=== PATIENT | female | born 1960 | race Caucasian/White ===

== ENCOUNTER 2016-12-12 16:12 | Inpatient (IN) | payer OTHER ==
[~2016-12-12] VITALS: Ht 167.6 cm; Wt 95.0 kg
[~2016-12-12 16:12] MED LIST: BUPR300T PO; DILT180C56 PO; DILT90 PO; DULO60 PO; ESTR1TAB PO; FLUO20TA20 PO; HYZA50TA2 PO; LAMO25 PO; LORA-474 PO; LOSA25 PO; LOVA40TA PO; NORC10TA2 PO; PROP10TA6 PO; PROP1TAB66 PO; QUET25 PO; RANI150 PO; SOMA350T PO; TEMA15 PO; VITA200017 PO; ZANT150T2 PO
[2016-12-12 16:15] VITALS: BP 192/103; PULSE 102; RESP 16; TEMP 98.2; O2SAT 96
--- NOTE | 2016-12-12 16:56 | PD ---
HPI Chief Complaint: Headache Time Seen by Provider: 16:55 Travel History International Travel<30 days: No Contact w/Intl Traveler<30days: No Traveled to known affect area: No History of Present Illness HPI This is a 56-year-old female history of hypertension, diet-controlled diabetes, migraine headaches, who presents today with complaints of headache and confusion. The patient states that the headache feels like her migraine however she was noted to be confused. Apparently she was driving down her road and did not know how to get home. The police apparently pulled her over because she was driving erratically. She denies any weakness of her extremity is. She does report numbness and tingling to her fingers. She denies this being the worst headache of her life. She states that she has headaches like this when she has the migraines, she just does not have the associated confusion. PFSH Past Medical History Arthritis: No Asthma: No Autoimmune Disease: No Anxiety: Yes Depression: Yes Cardiovascular Problems: Yes (HTN) Chemotherapy: No Chest Pain: No Congestive Heart Failure: No COPD: No Cerebrovascular Accident: No Diabetes: Yes Endocrine: No GERD: No Genitourinary: No Hiatal Hernia: No Hypertension: Yes Immune Disorder: No Kidney Stones: No Musculoskeletal: Yes Neurologic: Yes Psychiatric: Yes (Hx of anxiety and depression) Reproductive: No Respiratory: No Migraines: No Radiation Therapy: No Renal Failure: No Sickle Cell Disease: No Sleep Apnea: No Thyroid Disease: No Ulcer: No Past Surgical History Abdominal Surgery: No AICD: No Arteriovenous Shunt: No Cardiac Surgery: No Cholecystectomy: Yes Ear Surgery: No Endocrine Surgery: No Eye Surgery: No Genitourinary Surgery: No Gynecologic Surgery: No Hysterectomy: Yes Insulin Pump: No Joint Replacement: No Oral Surgery: No Pacemaker: No Thoracic Surgery: No Social History Alcohol Use: No Tobacco Use: No Substance Use: No Allergies-Medications (Allergen,Severity, Reaction): Coded Allergies: Darvocet-N 100 (Verified Allergy, Unknown, 12/12/16) Per paperwork faxed from [facility] on 07/02/16. Propoxyphene (Verified Allergy, Unknown, 12/12/16) Per paperwork faxed from [facility] on 07/02/16. Toradol (Verified Allergy, Unknown, 12/12/16) Per paperwork faxed from [facility] on 07/02/16. Reported Meds & Prescriptions Reported Meds & Active Scripts Active Reported Flexeril (Cyclobenzaprine HCl) 10 Mg Tab 10 Mg PO BID PRN Propranolol (Propranolol HCl) 80 Mg Tab 80 Mg PO Q12HR Lovastatin 40 Mg Tab 40 Mg PO HS Lorazepam 0.5 Mg Tab 0.5 Mg PO BID PRN Lamictal (Lamotrigine) 25 Mg Tab 25 Mg PO BID Estradiol 1 Mg Tab 1 Mg PO DAILY Cymbalta DR (Duloxetine HCl) 60 Mg Capdr 60 Mg PO DAILY Cardizem CD 24 HR (Diltiazem CD 24 HR) 240 Mg Caper 240 Mg PO BID Zantac (Ranitidine HCl) 150 Mg Tab 150 Mg PO BID Review of Systems Except as stated in HPI: all other systems reviewed are Neg General / Constitutional: No: Fever, Chills HENT: Positive: Headaches, No: Lightheadedness, Neck Pain Cardiovascular: No: Chest Pain or Discomfort, Palpitations Respiratory: No: Cough, Shortness of Breath Gastrointestinal: No: Nausea, Vomiting, Abdominal Pain Musculoskeletal: No: Weakness, Pain Skin: No Rash, No Itching Neurologic: Positive: Headache, Change in Mentation, Other (tingling of her bilateral fingers), No: Weakness, Dizziness, Slurred Speech Psychiatric: No: Anxiety, Depression Physical Exam Narrative GENERAL: Well-developed well-nourished female in no acute rest her distress. SKIN: Warm and dry. HEAD: Atraumatic. Normocephalic. EYES: Extraocular muscles were intact. No scleral icterus. No injection or drainage. ENT: No nasal bleeding or discharge. Mucous membranes pink and moist. NECK: Trachea midline. Supple. CARDIOVASCULAR: Regular rate and rhythm. No murmur appreciated. RESPIRATORY: No accessory muscle use. Clear to auscultation. Breath sounds equal bilaterally. GASTROINTESTINAL: Abdomen soft, non-tender, nondistended. MUSCULOSKELETAL: No obvious deformities. No clubbing. No cyanosis. No edema. NEUROLOGICAL: Awake and alert. No obvious cranial nerve deficits. Motor grossly within normal limits. Normal speech. PSYCHIATRIC: Appropriate mood and affect; insight and judgment normal. Data Data Last Documented VS Vital Signs Date Time Temp Pulse Resp B/P Pulse Ox O2 Delivery O2 Flow Rate FiO2 12/12/16 18:35 95 18 206/95 97 Room Air 12/12/16 16:15 98.2 Orders Electrocardiogram (12/12/16 16:55) Prothrombin Time / Inr (Pt) (12/12/16 16:55) Act Partial Throm Time (Ptt) (12/12/16 16:55) Complete Blood Count With Diff (12/12/16 16:55) Urinalysis - C+S If Indicated (12/12/16 16:55) Ct Brain W/O Iv Contrast(Rout) (12/12/16 16:55) Chest, Single Ap (12/12/16 16:55) Ecg Monitoring (12/12/16 16:55) Iv Access Insert/Monitor (12/12/16 16:55) Oximetry (12/12/16 16:55) Sodium Chloride 0.9% Flush (Ns Flush) (12/12/16 17:00) Drug Screen, Random Urine (12/12/16 18:21) Comprehensive Metabolic Panel (12/12/16 18:27) Labetalol Inj (Trandate Inj) (12/12/16 18:28) Labs Laboratory Tests Test 12/12/16 12/12/16 17:00 18:25 White Blood Count 11.5 TH/MM3 Red Blood Count 4.18 MIL/MM3 Hemoglobin 13.1 GM/DL Hematocrit 37.1 % Mean Corpuscular Volume 88.8 FL Mean Corpuscular Hemoglobin 31.3 PG Mean Corpuscular Hemoglobin 35.2 % Concent Red Cell Distribution Width 12.6 % Platelet Count 320 TH/MM3 Mean Platelet Volume 7.7 FL Neutrophils (%) (Auto) 69.9 % Lymphocytes (%) (Auto) 24.0 % Monocytes (%) (Auto) 5.8 % Eosinophils (%) (Auto) 0.1 % Basophils (%) (Auto) 0.2 % Neutrophils # (Auto) 8.0 TH/MM3 Lymphocytes # (Auto) 2.8 TH/MM3 Monocytes # (Auto) 0.7 TH/MM3 Eosinophils # (Auto) 0.0 TH/MM3 Basophils # (Auto) 0.0 TH/MM3 CBC Comment DIFF FINAL Differential Comment Prothrombin Time 10.6 SEC Prothromb Time International 1.0 RATIO Ratio Activated Partial 26.7 SEC Thromboplast Time Sodium Level 132 MEQ/L Potassium Level 3.2 MEQ/L Chloride Level 94 MEQ/L Carbon Dioxide Level 24.3 MEQ/L Anion Gap 14 MEQ/L Blood Urea Nitrogen 13 MG/DL Creatinine 0.70 MG/DL Estimat Glomerular Filtration 87 ML/MIN Rate Random Glucose 155 MG/DL Calcium Level 9.1 MG/DL Aspartate Amino Transf 38 U/L (AST/SGOT) Albumin 4.0 GM/DL Urine Color YELLOW Urine Turbidity CLEAR Urine pH 6.0 Urine Specific [place] 1.031 Urine Protein 30 mg/dL Urine Glucose (UA) NEG mg/dL Urine Ketones 80 mg/dL Urine Occult Blood NEG Urine Nitrite NEG Urine Bilirubin NEG Urine Urobilinogen 2.0 MG/DL Urine Leukocyte Esterase SMALL Urine WBC 6 /hpf Urine Squamous Epithelial 4 /hpf Cells Urine Hyaline Casts 6 /lpf Urine Mucus FEW /lpf Microscopic Urinalysis Comment CATH-CULT NOT IND MDM Medical Decision Making Medical Screen Exam Complete: Yes Emergency Medical Condition: Yes Differential Diagnosis Atypical migraine versus TIA versus CVA versus metabolic derangement Narrative Course 36-year-old female who presents with altered sensorium and headache. The patient has a history of migraine headaches. The patient was stopped by the police because she was confused as where she lived. The patient also noted to have a blood pressure 200 systolic over 90 diastolic. The patient has been given 10 mg of labetalol. Also be given nausea medicine. CT brain are within normal limits. I anticipate this patient will at the very least need to be admitted for TIA workup. At this point the working diagnosis is uncontrolled hypertension versus migraine headache versus metabolic derangement. The patient was signed out to Dr. David Steiner, physician replacing this physician , disposition will be per him. He will follow up on the blood pressure and will admit at the very least under observation. Diagnosis Primary Impression: Cephalgia Additional Impressions: Uncontrolled hypertension Altered sensorium Keyur Haddad MD Dec 12, 2016 16:56
[2016-12-12 17:00] VITALS: BP 207/107; PULSE 95; RESP 18; O2SAT 95
[2016-12-12] MEDS: SODIUM CHLORIDE 0.9% FLUSH 5 ML FLUSH IVF PRN ×2 (17:00→20:06)
[2016-12-12 17:16] LABS: BASOPHIL % 0.2 % (0.0-2.0); EOSINOPHIL % 0.1 % (0.0-4.0); HEMATOCRIT 37.1 % (35.0-46.0); HEMO FLAGS DIFF FINAL; LYMPHOCYTE # 2.8 TH/MM3 (1.0-4.8); MEAN CELL VOLUME 88.8 FL (80.0-100.0); MEAN CORPUSCULAR HEMOGLOBIN 31.3 PG (27.0-34.0); MEAN CORPUSCULAR HGB CONC 35.2 % (32.0-36.0); MONO % 5.8 % (0.0-8.0); NEUT % 69.9 % (16.0-70.0); PLATELET COUNT 320 TH/MM3 (150-450); RED BLOOD COUNT 4.18 MIL/MM3 (4.00-5.30); RED CELL DISTRIBUTION WIDTH 12.6 % (11.6-17.2); WHITE BLOOD COUNT 11.5 TH/MM3 (4.0-11.0)
[2016-12-12 17:29] LABS: APTT (PATIENT) 26.7 SEC (24.3-30.1); PROTHROMBIN TIME - PATIENT 10.6 SEC (9.8-11.6)
--- NOTE | 2016-12-12 17:39 | RADRPT ---
EXAM DATE/TIME: 12/12/2016 17:23 [facility] COMPARISON: CT BRAIN W/O CONTRAST, July 02, 2016, 11:44. INDICATIONS : Headaches with dizziness and blurred vision. RADIATION DOSE: 31.54 CTDIvol (mGy) MEDICAL HISTORY : Cardiovascular disease. Hypertension. Diabetes mellitus type 2. SURGICAL HISTORY : Cholecystectomy. Hysterectomy. ENCOUNTER: Initial ACUITY: 1 day PAIN SCALE: 5/10 LOCATION: cranial TECHNIQUE: Multiple contiguous axial images were obtained of the head. Using automated exposure control and adj ustment of the mA and/or kV according to patient size, radiation dose was kept as low as reasonably a chievable to obtain optimal diagnostic quality images. FINDINGS: CEREBRUM: The ventricles are normal for age. No evidence of midline shift, mass lesion, hemorrhage or acute in farction. No extra-axial fluid collections are seen. POSTERIOR FOSSA: The cerebellum and brainstem are intact. The 4th ventricle is midline. The cerebellopontine angle i s unremarkable. EXTRACRANIAL: The visualized portion of the orbits is intact. SKULL: The calvaria is intact. No evidence of skull fracture. CONCLUSION: Normal examination. Gage Carmen MD on December 12, 2016 at 17:36 Board Certified Radiologist. This report was verified electronically.
--- NOTE | 2016-12-12 17:42 | RADRPT ---
EXAM DATE/TIME: 12/12/2016 17:12 [facility] COMPARISON: No previous studies available for comparison. INDICATIONS : Chest pain. CVA MEDICAL HISTORY : None. SURGICAL HISTORY : None. ENCOUNTER: Initial ACUITY: 1 day PAIN SCORE: 0/10 LOCATION: Bilateral chest FINDINGS: A single view of the chest demonstrates the lungs to be symmetrically aerated without evidence of mas s, infiltrate or effusion. The cardiomediastinal contours are unremarkable. Osseous structures are intact. CONCLUSION: No acute disease. Gage Carmen MD on December 12, 2016 at 17:40 Board Certified Radiologist. This report was verified electronically.
[2016-12-12] MEDS ORDERED: ZANT150T2 PO (18:07)
[2016-12-12] MEDS ORDERED: CYMB60CA PO (18:09)
[2016-12-12] MEDS ORDERED: CARD240C6 PO (18:09)
[2016-12-12] MEDS ORDERED: LAMO25 PO (18:09)
[2016-12-12] MEDS ORDERED: ESTR1TAB PO (18:09)
[2016-12-12] MEDS ORDERED: PROP80TA PO (18:14)
[2016-12-12] MEDS ORDERED: LORA-373 PO (18:14)
[2016-12-12] MEDS ORDERED: LOVA40TA PO (18:14)
[2016-12-12] MEDS ORDERED: CYCL1TAB29 PO (18:15)
[2016-12-12] MEDS ORDERED: LABETALOL HCL 100 MG/20 ML VIAL IV PUSH STA (18:28)
[2016-12-12 18:35] VITALS: BP 206/95; PULSE 95; RESP 18; O2SAT 97
[2016-12-12 18:51] LABS: BLOOD, URINE NEG (NEG); GLUCOSE,URINE NEG (NEG); HYALINE CAST, URINE 6 /lpf (RARE); KETONE, URINE 80 mg/dL (NEG); MUCUS URINE FEW /lpf (OCC); NITRITE,URINE NEG (NEG); SQUAMOUS EPITHELIAL CELL URINE 4 /hpf (0-5); URINE COLOR YELLOW (YELLW/STRAW)
[2016-12-12 18:56] LABS: COMMENT (UR) CATH-CULT NOT IND; CULTURE IF INDICATED CATH CULTURE NOT IND
[2016-12-12 19:01] LABS: ANION GAP 14 MEQ/L (5-15); AST (GOT) 38 U/L (15-37); BICARBONATE 24.3 MEQ/L (21.0-32.0); BLOOD UREA NITROGEN 13 MG/DL (7-18); CHLORIDE 94 MEQ/L (98-107); GLOMERULAR FILTRATION RATE 87 ML/MIN (>89); POTASSIUM 3.2 MEQ/L (3.5-5.1); SODIUM (NA) 132 MEQ/L (136-145)
[2016-12-12 19:03] LABS: AMPHETAMINE, URINE NEG (NEG); BARBITURATES, URINE NEG (NEG); COCAINE, URINE NEG (NEG)
--- NOTE | 2016-12-12 19:04 | PD ---
Physical Exam Date Seen by Provider: Dec 12, 2016 Time Seen by Provider: 19:01 Narrative The patient is a 56-year-old female who was initially evaluated by the previous physician, Dr. Haddad. Please refer to the initial history, physical, diagnostic evaluation, treatment modality plan. According to the previous physician the patient had an episode of confusion earlier today, had difficulty getting home. The patient apparently was escorted home by police. CT the brain was negative, however, the previous physician thought there might have been a TIA that causes patient's symptoms. He recommends 23 hour observation for further evaluation after workup was completed in the emergency department. Data Data Last Documented VS Vital Signs Date Time Temp Pulse Resp B/P Pulse Ox O2 Delivery O2 Flow Rate FiO2 12/12/16 19:05 95 18 160/73 100 Room Air 12/12/16 16:15 98.2 Orders Electrocardiogram (12/12/16 16:55) Prothrombin Time / Inr (Pt) (12/12/16 16:55) Act Partial Throm Time (Ptt) (12/12/16 16:55) Complete Blood Count With Diff (12/12/16 16:55) Urinalysis - C+S If Indicated (12/12/16 16:55) Ct Brain W/O Iv Contrast(Rout) (12/12/16 16:55) Chest, Single Ap (12/12/16 16:55) Ecg Monitoring (12/12/16 16:55) Iv Access Insert/Monitor (12/12/16 16:55) Oximetry (12/12/16 16:55) Sodium Chloride 0.9% Flush (Ns Flush) (12/12/16 17:00) Drug Screen, Random Urine (12/12/16 18:21) Comprehensive Metabolic Panel (12/12/16 18:27) Labetalol Inj (Trandate Inj) (12/12/16 18:28) Morphine Inj (Morphine Inj) (12/12/16 19:15) Ondansetron Inj (Zofran Inj) (12/12/16 19:15) Admit Order (Ed Use Only) (12/12/16 19:19) Labs Laboratory Tests Test 12/12/16 12/12/16 17:00 18:25 White Blood Count 11.5 TH/MM3 Red Blood Count 4.18 MIL/MM3 Hemoglobin 13.1 GM/DL Hematocrit 37.1 % Mean Corpuscular Volume 88.8 FL Mean Corpuscular Hemoglobin 31.3 PG Mean Corpuscular Hemoglobin 35.2 % Concent Red Cell Distribution Width 12.6 % Platelet Count 320 TH/MM3 Mean Platelet Volume 7.7 FL Neutrophils (%) (Auto) 69.9 % Lymphocytes (%) (Auto) 24.0 % Monocytes (%) (Auto) 5.8 % Eosinophils (%) (Auto) 0.1 % Basophils (%) (Auto) 0.2 % Neutrophils # (Auto) 8.0 TH/MM3 Lymphocytes # (Auto) 2.8 TH/MM3 Monocytes # (Auto) 0.7 TH/MM3 Eosinophils # (Auto) 0.0 TH/MM3 Basophils # (Auto) 0.0 TH/MM3 CBC Comment DIFF FINAL Differential Comment Prothrombin Time 10.6 SEC Prothromb Time International 1.0 RATIO Ratio Activated Partial 26.7 SEC Thromboplast Time Sodium Level 132 MEQ/L Potassium Level 3.2 MEQ/L Chloride Level 94 MEQ/L Carbon Dioxide Level 24.3 MEQ/L Anion Gap 14 MEQ/L Blood Urea Nitrogen 13 MG/DL Creatinine 0.70 MG/DL Estimat Glomerular Filtration 87 ML/MIN Rate Random Glucose 155 MG/DL Calcium Level 9.1 MG/DL Total Bilirubin 0.9 MG/DL Aspartate Amino Transf 38 U/L (AST/SGOT) Alanine Aminotransferase 28 U/L (ALT/SGPT) Alkaline Phosphatase 75 U/L Total Protein 7.9 GM/DL Albumin 4.0 GM/DL Urine Color YELLOW Urine Turbidity CLEAR Urine pH 6.0 Urine Specific [place] 1.031 Urine Protein 30 mg/dL Urine Glucose (UA) NEG mg/dL Urine Ketones 80 mg/dL Urine Occult Blood NEG Urine Nitrite NEG Urine Bilirubin NEG Urine Urobilinogen 2.0 MG/DL Urine Leukocyte Esterase SMALL Urine WBC 6 /hpf Urine Squamous Epithelial 4 /hpf Cells Urine Hyaline Casts 6 /lpf Urine Mucus FEW /lpf Microscopic Urinalysis Comment CATH-CULT NOT IND MDM Medical Record Reviewed: Yes Supervised Visit with LESLEY: No Interpretation(s) Last Impressions Head CT 12/12/161654 Signed Impressions: Service Date/Time: Monday, December 12, 2016 17:23 - CONCLUSION: Normal examination. Gage Carmen MD Chest X-Ray 12/12/161654 Signed Impressions: Service Date/Time: Monday, December 12, 2016 17:12 - CONCLUSION: No acute disease. Gage Carmen MD Differential Diagnosis Differential diagnosis includes transient global amnesia, TIA, CVA, delirium, drug intoxication, metabolic encephalopathy. Narrative Course The patient was initially evaluated by the previous physician, Dr. Haddad. Please refer to the initial history, physical, diagnostic evaluation, and treatment modality plan. The patient was signed out at 7 PM laboratory evaluation pending and subsequent 23 hour observation for possible TIA. CT of the brain was negative. Metabolic workup was unremarkable. The patient was reevaluated at 7:10 PM, she states that she has a slight headache, numbness and tingling to the hands and tongue, and confusion. The patient states that her symptoms started while driving home and lasted approximately 30 minutes. She does have a history of migraines with tingling, however, denies any history of confusion with her migraines. The patient's differential diagnosis includes TIA, CVA, metabolic encephalopathy, hypertensive emergency, hypertensive urgency , and transient global amnesia. Dr. Haddad, the previous physician, recommended 23 hour observation. The patient is comfortable with this plan of care and disposition. She may benefit from MRI of the brain and neurology evaluation. The patient sees Dr. Boyle at [facility], therefore, [facility] was paged for observation at 7:13 PM. The patient's initial blood pressure was significantly elevated with a systolic in the 200s and a diastolic in the 100s, after labetalol was administered by Dr. Haddad, patient's blood pressure came down 160/73. The patient did complain of a headache, therefore, was administered morphine and Zofran. Physician Communication Physician Communication [facility] was paged for 23 hour observation. I discussed the patient with Dr. Crocker who agrees with 23 hour observation. Diagnosis Primary Impression: Altered sensorium Additional Impression: Uncontrolled hypertension Admitting Information Admitting Physician Requests: Observation Condition: Stable David Steiner MD Dec 12, 2016 19:03
[2016-12-12 19:05] VITALS: BP 160/73; PULSE 95; RESP 18; O2SAT 100
[2016-12-12 19:05] LABS: ALKALINE PHOSPHATASE 75 U/L (45-117); ALT (GPT) 28 U/L (10-53); TOTAL BILIRUBIN ADULT 0.9 MG/DL (0.2-1.0)
[2016-12-12] MEDS ORDERED: ONDANSETRON HCL 4 MG/2 ML VIAL IV PUSH ONE (19:15)
[2016-12-12] MEDS ORDERED: MORPHINE SULFATE 4 MG/ML INJ IV PUSH ONE (19:15)
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
[2016-12-12 20:54] VITALS: BP 198/93; PULSE 96; RESP 16; O2SAT 98
[2016-12-12] MEDS ORDERED: cloNIDine HCL 0.1 MG TAB PO PRN (21:00)
[2016-12-12] MEDS ORDERED: RANITIDINE HCL 150 MG TAB PO SCH (21:00)
[2016-12-12] MEDS ORDERED: POTASSIUM CHLORIDE 10 MEQ CONTROLLED RELEASE TAB PO ONE (21:00)
[2016-12-12] MEDS ORDERED: LABETALOL HCL 100 MG/20 ML VIAL IV PUSH PRN (21:00)
--- NOTE | 2016-12-12 21:03 | EKG ---
Date Performed: 12/12/2016 Time Performed: 17:17:04 PTAGE: 56 years EKG: Sinus rhythm NORMAL ECG NO PREVIOUS TRACING DOCTOR: Duarte Cullen Interpretating Date/Time 12/12/2016 21:02:11
[2016-12-12 21:19] LABS: MAGNESIUM 1.8 MG/DL (1.5-2.5)
[2016-12-12] MEDS: PRAVASTATIN SOD 40 MG TAB PO SCH (21:51)
[2016-12-12] MEDS: LOSARTAN 50 MG TAB PO SCH (23:12)
[2016-12-12] MEDS: FAMOTIDINE 20 MG TAB PO SCH (23:12)
[2016-12-12] MEDS: lamoTRIgine 25 MG TAB PO SCH (23:12)
[2016-12-12] MEDS: DILTIAZEM-CD 240 MG CAP ER PO SCH (23:12)
[2016-12-12 23:42] VITALS: BP 191/79; PULSE 109; RESP 16; O2SAT 97
[2016-12-13 00:10] VITALS: BP 170/80; PULSE 98; RESP 16; O2SAT 97
[2016-12-13 03:38] VITALS: BP 164/78; PULSE 68; RESP 18; TEMP 98.8; O2SAT 98
[2016-12-13] MEDS: MORPHINE SULFATE 4 MG/ML INJ IV PUSH PRN ×2 (04:04→11:31)
[2016-12-13 07:19] LABS: BICARBONATE 22.6 MEQ/L (21.0-32.0); POTASSIUM 3.4 MEQ/L (3.5-5.1)
[2016-12-13 07:54] VITALS: BP 179/89; PULSE 96; RESP 18; TEMP 98; O2SAT 95
[2016-12-13] MEDS: LOSARTAN 50 MG TAB PO SCH (10:40)
[2016-12-13] MEDS: FAMOTIDINE 20 MG TAB PO SCH ×2 (10:48→20:19)
[2016-12-13] MEDS: DULoxetine HCl DR 60 MG CAP PO SCH (10:48)
[2016-12-13] MEDS: lamoTRIgine 25 MG TAB PO SCH ×2 (11:30→20:19)
[2016-12-13] MEDS: VITAMIN B COMPLEX/VIT C TAB PO SCH (11:30)
[2016-12-13] MEDS: DILTIAZEM-CD 240 MG CAP ER PO SCH (11:30)
[2016-12-13 11:58] VITALS: BP 189/97; PULSE 90; RESP 16; TEMP 97.7; O2SAT 97
--- NOTE | 2016-12-13 12:49 | HHI.PR ---
Subjective Remarks had some h/a and required morphine today Objective Vitals on edge bed oriented heart reg lung cta abd s/nt ext no edema no jvd or bruit Vital Signs Date Time Temp Pulse Resp B/P Pulse Ox O2 Delivery O2 Flow Rate FiO2 12/13/16 11:58 97.7 90 16 189/97 97 12/13/16 07:54 98.0 96 18 179/89 95 12/13/16 04:17 14 12/13/16 03:38 98.8 68 18 164/78 98 12/13/16 00:10 98 16 170/80 97 Room Air 12/12/16 23:42 109 16 191/79 97 Room Air 12/12/16 20:54 96 16 198/93 98 Room Air 12/12/16 19:05 95 18 160/73 100 Room Air 12/12/16 18:35 95 18 206/95 97 Room Air 12/12/16 17:00 95 18 207/107 95 12/12/16 17:00 94 Room Air 12/12/16 16:15 98.2 102 16 192/103 96 Result Diagram: 12/12/16 1700 12/13/16 0538 Imaging Last [address] 12/12/161654 Signed Impressions: Service Date/Time: Monday, December 12, 2016 17:23 - CONCLUSION: Normal examination. Gage Carmen MD Chest X-Ray 12/12/161654 Signed Impressions: Service Date/Time: Monday, December 12, 2016 17:12 - CONCLUSION: No acute disease. Gage Carmen MD A/P Problem List: (1) Uncontrolled hypertension Status: Acute Plan: Pt presented with migraine/aura...some confusion and severe elevation of htn Pt says her bp is typically not well controlled and usually at least in 160-170 systolic range when checked. currently her mental status is improved. headache intermittent. auras better. will adjust her bp meds. will cont her home propranolol as this also could help with migraines. will d/c cardizem and replace with procardia. titrate as needed. cont her arb for now. d/c iv pain meds. prn po for now. monitor overnight and d/c tomorrow if stable. (2) Migraine headache with aura Status: Acute Plan: see above (3) Hypokalemia Status: Acute Plan: Replace and recheck. (4) Major depression in partial remission Status: Chronic Plan: Continue medications. (5) Anxiety and depression Status: Chronic Plan: Continue Medications. She uses Ativan when necessary but sparingly. (6) GERD (gastroesophageal reflux disease) Status: Chronic Plan: Continue medications. Lupillo Busch MD Dec 13, 2016 12:49
[2016-12-13] MEDS ORDERED: cloNIDine HCL 0.1 MG TAB PO PRN (13:00)
[2016-12-13] MEDS ORDERED: POTASSIUM CHLORIDE 20 MEQ CONTROLLED RELEASE TAB PO ONE (13:00)
[2016-12-13 15:52] VITALS: BP 185/98; PULSE 95; RESP 16; TEMP 98.1; O2SAT 98
[2016-12-13] MEDS ORDERED: NIFEdipine 30 MG SUSTAINED RELEASE TAB PO ONE (18:15)
[2016-12-13 20:02] VITALS: BP 188/88; PULSE 101; RESP 20; TEMP 98.3; O2SAT 97
[2016-12-13] MEDS: SODIUM CHLORIDE 0.9% FLUSH 5 ML FLUSH IVF PRN (20:19)
[2016-12-13] MEDS: PRAVASTATIN SOD 40 MG TAB PO SCH (20:19)
[2016-12-13] MEDS: PROPRANOLOL HCL 80 MG TAB PO SCH (20:19)
[2016-12-13] MEDS ORDERED: NIFEdipine 30 MG SUSTAINED RELEASE TAB PO SCH (21:00)
[2016-12-14] VITALS (7 sets, daily range): BP systolic 145–174; BP diastolic 72–93; PULSE 73–89; RESP 18–20; TEMP 97.6–98.8; O2SAT 96–100
[2016-12-14] MEDS: cloNIDine HCL 0.2 MG TAB PO PRN (04:41)
[2016-12-14] MEDS ORDERED: NIFEdipine 30 MG SUSTAINED RELEASE TAB PO SCH (09:00)
[2016-12-14] MEDS: DULoxetine HCl DR 60 MG CAP PO SCH (09:31)
[2016-12-14] MEDS: ACETAMINOPHEN/HYDROcodone 325 MG/10 MG TAB PO PRN ×2 (09:32→21:21)
[2016-12-14] MEDS: LOSARTAN 50 MG TAB PO SCH (09:33)
[2016-12-14] MEDS: PROPRANOLOL HCL 80 MG TAB PO SCH ×2 (09:33→20:50)
[2016-12-14] MEDS: NIFEdipine 60 MG SUSTAINED RELEASE TAB PO SCH ×2 (09:33→20:50)
[2016-12-14] MEDS: FAMOTIDINE 20 MG TAB PO SCH ×2 (09:33→20:50)
[2016-12-14] MEDS: VITAMIN B COMPLEX/VIT C TAB PO SCH (09:33)
[2016-12-14] MEDS: lamoTRIgine 25 MG TAB PO SCH ×2 (09:34→20:50)
[2016-12-14] MEDS ORDERED: ACETAMINOPHEN/HYDROcodone 325 MG/5 MG TAB PO ONE (13:30)
[2016-12-14] MEDS ORDERED: methylPREDNISolone SO SUCC INJ 500 MG in DEXTROSE 5% IN WATER 100ML INJ 100 ML IV ONE ×2 (15:00)
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
[2016-12-14] MEDS: PRAVASTATIN SOD 40 MG TAB PO SCH (20:50)
[2016-12-14] MEDS: SODIUM CHLORIDE 0.9% FLUSH 5 ML FLUSH IVF PRN (20:50)
[2016-12-15] VITALS: BP 153/82; PULSE 78; RESP 18; TEMP 98.3; O2SAT 98
[2016-12-15] MEDS: ACETAMINOPHEN/HYDROcodone 325 MG/10 MG TAB PO PRN ×4 (03:59→18:58)
[2016-12-15 04:16] VITALS: BP 135/77; PULSE 95; RESP 18; TEMP 98; O2SAT 99
[2016-12-15 08:02] VITALS: BP 176/98; PULSE 90; RESP 18; TEMP 97.8; O2SAT 98
[2016-12-15] MEDS: DULoxetine HCl DR 60 MG CAP PO SCH (08:56)
[2016-12-15] MEDS: NIFEdipine 60 MG SUSTAINED RELEASE TAB PO SCH ×2 (08:56→20:42)
[2016-12-15] MEDS: VITAMIN B COMPLEX/VIT C TAB PO SCH (08:56)
[2016-12-15] MEDS: FAMOTIDINE 20 MG TAB PO SCH ×2 (08:56→20:43)
[2016-12-15] MEDS: LOSARTAN 50 MG TAB PO SCH ×2 (08:56→20:42)
[2016-12-15] MEDS: PROPRANOLOL HCL 80 MG TAB PO SCH ×2 (08:56→20:42)
[2016-12-15] MEDS: lamoTRIgine 25 MG TAB PO SCH ×2 (08:57→20:42)
[2016-12-15] MEDS: LORazepam 0.5 MG TAB PO PRN ×2 (08:59→18:58)
[2016-12-15 11:40] VITALS: BP 165/80; PULSE 82; RESP 18; O2SAT 95
[2016-12-15] MEDS: CYCLOBENZAPRINE HCL 10 MG TAB PO PRN (13:40)
--- NOTE | 2016-12-15 13:59 | MG ---
cc: SHERRY KWON M.D. Lab No: [id number] Date: 12/15/2016 Age: Sex: F TECHNIQUE 17-channel EEG. DESCRIPTION The background rhythm reveals a symmetrical alpha rhythm, frequencies 8-9 Hz, amplitude about 10-15 microvolts. Occasional eye movement and muscle artifact are identified. There are no lateralizing features. There are no epileptiform features present. Photic results in a normal driving response. Hyperventilation was not done. INTERPRETATION Normal EEG. Sherry Kwon MD KAYLEEN/MARYCHUY /1:52 PM /1:57 PM
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
[2016-12-15] MEDS ORDERED: POTASSIUM CHLORIDE 20 MEQ CONTROLLED RELEASE TAB PO ONE (15:00)
[2016-12-15 16:10] VITALS: BP 180/86; PULSE 80; RESP 18; O2SAT 95
[2016-12-15] MEDS: cloNIDine HCL 0.2 MG TAB PO PRN (16:54)
[2016-12-15 19:38] VITALS: BP 130/69; PULSE 92; RESP 20; TEMP 97.8; O2SAT 96
[2016-12-15] MEDS: PRAVASTATIN SOD 40 MG TAB PO SCH (20:42)
[2016-12-16 00:04] VITALS: BP 180/89; PULSE 82; RESP 22; TEMP 97.9; O2SAT 95
[2016-12-16] MEDS: cloNIDine HCL 0.2 MG TAB PO PRN (01:03)
[2016-12-16] MEDS: CYCLOBENZAPRINE HCL 10 MG TAB PO PRN ×2 (01:03→15:54)
[2016-12-16] MEDS: ACETAMINOPHEN/HYDROcodone 325 MG/10 MG TAB PO PRN ×4 (01:03→23:48)
[2016-12-16 03:59] VITALS: BP 115/73; PULSE 77; RESP 22; TEMP 98; O2SAT 93
[2016-12-16 07:19] LABS: BASOPHIL % 0.1 % (0.0-2.0); EOSINOPHIL # 0.1 TH/MM3 (0-0.4); EOSINOPHIL % 0.9 % (0.0-4.0); HEMATOCRIT 34.3 % (35.0-46.0); HEMO FLAGS DIFF FINAL; LYMPH % 40.7 % (9.0-44.0); LYMPHOCYTE # 4.8 TH/MM3 (1.0-4.8); MEAN CELL VOLUME 91.8 FL (80.0-100.0); MEAN CORPUSCULAR HEMOGLOBIN 30.8 PG (27.0-34.0); MEAN CORPUSCULAR HGB CONC 33.6 % (32.0-36.0); MONO % 7.4 % (0.0-8.0); NEUT % 50.9 % (16.0-70.0); PLATELET COUNT 242 TH/MM3 (150-450); RED BLOOD COUNT 3.74 MIL/MM3 (4.00-5.30); RED CELL DISTRIBUTION WIDTH 12.8 % (11.6-17.2); WHITE BLOOD COUNT 11.8 TH/MM3 (4.0-11.0)
[2016-12-16 07:46] LABS: BICARBONATE 26.8 MEQ/L (21.0-32.0); MAGNESIUM 1.9 MG/DL (1.5-2.5); POTASSIUM 4.1 MEQ/L (3.5-5.1)
[2016-12-16 08:13] VITALS: BP 173/83; PULSE 88; RESP 20; TEMP 98.1; O2SAT 93
[2016-12-16] MEDS: FAMOTIDINE 20 MG TAB PO SCH ×2 (09:23→20:40)
[2016-12-16] MEDS: VITAMIN B COMPLEX/VIT C TAB PO SCH (09:23)
[2016-12-16] MEDS: DULoxetine HCl DR 60 MG CAP PO SCH (09:23)
[2016-12-16] MEDS: lamoTRIgine 25 MG TAB PO SCH ×2 (09:23→20:40)
[2016-12-16] MEDS: NIFEdipine 60 MG SUSTAINED RELEASE TAB PO SCH ×2 (09:23→20:40)
[2016-12-16] MEDS: LOSARTAN 50 MG TAB PO SCH ×2 (09:23→20:40)
[2016-12-16] MEDS: LORazepam 0.5 MG TAB PO PRN ×2 (09:23→23:48)
[2016-12-16] MEDS: PROPRANOLOL HCL 80 MG TAB PO SCH ×2 (09:23→20:40)
[2016-12-16 09:24] LABS: BETA HCG QUANT LESS THAN 1 MIU/ML (0-5)
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
[2016-12-16 10:06] VITALS: BP 140/84
[2016-12-16] MEDS ORDERED: IOHEXOL 350 MG/ML 10 ML VIAL (for RAD DIAG) IV ONE (12:13)
--- NOTE | 2016-12-16 14:34 | RADRPT ---
EXAM DATE/TIME: 12/16/2016 12:03 [facility] COMPARISON: CT BRAIN W/O CONTRAST, December 12, 2016, 17:23. INDICATIONS : Evaluate for renal artery stenosis IV CONTRAST: 88 cc Omnipaque 350 (iohexol) IV ORAL CONTRAST: No oral contrast ingested. RADIATION DOSE: 15.20 CTDIvol (mGy) MEDICAL HISTORY : Hypertension. Diabetes mellitus type 1. SURGICAL HISTORY : Cholecystectomy. Hysterectomy. ENCOUNTER: Initial ACUITY: 1 day PAIN SCALE: 0/10 LOCATION: abdomen TECHNIQUE: Volumetric scanning was performed using a multi-row detector CT scanner. The data was post processed with a variety of visualization algorithms including full volume maximum intensity projection, multi -planar sliding thin slab reformation, curved planar reformation, and surface rendering techniques. Using automated exposure control and adjustment of the mA and/or kV according to patient size, radiat ion dose was kept as low as reasonably achievable to obtain optimal diagnostic quality images. FINDINGS: ABDOMINAL AORTA: The celiac and SMA origins are widely patent. There are single renal arteries bilaterally. The renal arteries are widely patent. The infrarenal aorta is normal in caliber. The CHRISTINA is patent. BIFURCATION: Normal. RIGHT PELVIS: The right common iliac, internal iliac and external iliac vessels are patent without luminal irregula rity. LEFT PELVIS: The left common iliac, internal iliac and external iliac vessels are patent and without luminal irreg ularity. CT source data: The solid organs of the abdomen are grossly intact by arterial phase imaging. There is no retroperito karson lymphadenopathy. Note is made of a thin-walled fluid collection in the upper abdomen measuring 5 .3 x 2.2 cm. This is adjacent to the pancreas and probably represents an old pseudocyst. There are no inflammatory changes around this. No findings to indicate bowel obstruction are seen. There is no fr ee fluid within the pelvis. No iliac or inguinal adenopathy is present. The patient is post hysterect ramona. CONCLUSION: 1. 2.2 x 5.2 cm thin-walled fluid collection in the left upper abdomen. This appears benign. This pro bably represents an old pseudocyst or a mesenteric duplication cyst. Followup CT imaging in 6 months to confirm stability could be performed. 2. Single renal arteries bilaterally. The renal arteries are widely patent. Landon Briones MD on December 16, 2016 at 13:50 Board Certified Radiologist. This report was verified electronically.
[2016-12-16 15:45] VITALS: BP 160/82; PULSE 82; RESP 18; O2SAT 95
[2016-12-16 19:32] VITALS: BP 150/76; PULSE 90; RESP 18; TEMP 98.4; O2SAT 98
[2016-12-16] MEDS: PRAVASTATIN SOD 40 MG TAB PO SCH (20:40)
[2016-12-17 03:24] VITALS: BP 151/82; PULSE 78; RESP 18; TEMP 98; O2SAT 97
[2016-12-17 06:35] LABS: BICARBONATE 27.7 MEQ/L (21.0-32.0); MAGNESIUM 1.9 MG/DL (1.5-2.5)
[2016-12-17] MEDS: lamoTRIgine 25 MG TAB PO SCH (08:10)
[2016-12-17] MEDS: NIFEdipine 60 MG SUSTAINED RELEASE TAB PO SCH (08:10)
[2016-12-17] MEDS: SODIUM CHLORIDE 0.9% FLUSH 5 ML FLUSH IVF PRN (08:11)
[2016-12-17] MEDS: CYCLOBENZAPRINE HCL 10 MG TAB PO PRN (08:11)
[2016-12-17] MEDS: DULoxetine HCl DR 60 MG CAP PO SCH (08:11)
[2016-12-17] MEDS: LOSARTAN 50 MG TAB PO SCH (08:11)
[2016-12-17] MEDS: VITAMIN B COMPLEX/VIT C TAB PO SCH (08:11)
[2016-12-17] MEDS: FAMOTIDINE 20 MG TAB PO SCH (08:11)
[2016-12-17] MEDS: PROPRANOLOL HCL 80 MG TAB PO SCH (08:11)
[2016-12-17 09:17] VITALS: BP 126/86; PULSE 84; RESP 20; TEMP 97.6; O2SAT 96
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
[2016-12-17] MEDS ORDERED: COZA50TA PO (09:45)
--- NOTE | 2016-12-17 09:49 | HHI.DCPOC ---
Discharge Care Plan Diagnosis: (1) Migraine headache with aura (2) Uncontrolled hypertension (3) Anxiety and depression (4) GERD (gastroesophageal reflux disease) (5) Major depression in partial remission (6) Hypokalemia Goals to Promote Your Health * To prevent worsening of your condition and complications * To maintain your health at the optimal level Directions to Meet Your Goals Take your medications as prescribed Follow your dietary instruction Follow activity as directed - I am recommending low Sodium diet 2g - keep home BP log - take all medications as prescribed - F/U with PCP, Dr. Boyle, in 1 week with home BP log Keep your appointments as scheduled Take your immunizations and boosters as scheduled If your symptoms worsen call your PCP, if no PCP go to Urgent Care Center or Emergency Room Smoking is Dangerous to Your Health. Avoid second hand smoke Call the 24-hour hour crisis hotline for domestic abuse at Sumit Morales DO Dec 17, 2016 09:49
[2016-12-17] MEDS ORDERED: NIFE60TA8 PO (10:03)
== END 2016-12-17 11:45 | disposition home or self-care (01) | DRG 103 ==
LOC: NEPE 16:12 → NEDA 19:22 → NEPGCP 12-13 01:25 → OBSVTOIN 12-15 14:39
PROVIDERS: ADMIT Hospitalist; ATTEND Hospitalist
DX: G43.109 Migraine with aura, not intractable, without status migrainosus (principal); E55.9 Vitamin D deficiency, unspecified; I16.1 Hypertensive emergency; I10 Essential (primary) hypertension; E78.5 Hyperlipidemia, unspecified; E87.6 Hypokalemia; F32.4 Major depressive disorder, single episode, in partial remission; F41.9 Anxiety disorder, unspecified; K21.9 Gastro-esophageal reflux disease without esophagitis; Z79.890 Hormone replacement therapy; E66.9 Obesity, unspecified; Z68.33 Body mass index [BMI] 33.0-33.9, adult; M48.06 Spinal stenosis, lumbar region; H40.059 Ocular hypertension, unspecified eye; E11.9 Type 2 diabetes mellitus without complications; G89.29 Other chronic pain; M54.5 Low back pain; M50.30 Other cervical disc degeneration, unspecified cervical region; M51.36 Other intervertebral disc degeneration, lumbar region
CPT/HCPCS: 70450; 71010; 74174; 80048; 80053; 80307; 81001; 83735; 84702; 85025; 85610; 85730; 93005; 95819; 96374; G0378; G8987-GP; G8988-GP; J2270; J2405; J2930; Q9967

== ENCOUNTER → 2017-07-16 | Day surgery (SDC) | payer OTHER ==
[~2017-07-16] VITALS: Ht 165.1 cm; Wt 93.0 kg
[~2017-07-16] MED LIST changes: +ACETAMINOPHEN 325 MG TAB PO PRN; -BUPR300T PO; +CHLORHEXIDINE GLUCONATE 2 % 1 PACK (2 CLOTHS) TOPICAL PRN; +CYCL1TAB29 PO; +CYMB60CA PO; -DILT180C56 PO; -DILT90 PO; -DULO60 PO; -FLUO20TA20 PO; +FLURBIPROFEN 0.03% OPHT SOLN 2.5 ML BTL RIGHT EYE SCH; -HYZA50TA2 PO; +INSULIN HUMAN REGULAR 1,000 UNITS/10 ML VIAL SQ PRN; +LACTATED RINGER'S 1000 ML IV PRN; +LIDOCAINE HCL 1% PF 30 ML VIAL ONE; +LIDOCAINE HCL 2% JELLY 5 ML SYRINGE TOPICAL ONE; +LORA-373 PO; -LORA-474 PO; -LOSA25 PO; +LOSA50TA2 PO; +METOPROLOL TARTRATE 25 MG TAB PO PRN; +MIDAZOLAM HCL 2 MG/2 ML VIAL ONE; +NIFE60TA8 PO; -NORC10TA2 PO; +POVIDONE IODINE 5% (ANTISEPSIS KIT) 4 APPLICATIONS EACH NARE PRN; -PROP10TA6 PO; -PROP1TAB66 PO; +PROP80TA PO; +PROPARACAINE HCL 0.5% OPHT SOLN 15 ML BTL RIGHT EYE ONE; -QUET25 PO; -RANI150 PO; +SODIUM CHLORID 0.9% 500 ML IV PRN; -SOMA350T PO; -TEMA15 PO; +TOBRAMYCIN/DEXAMETHASONE OPTH OINT 3.5 GM TUBE ONE; -VITA200017 PO
[2017-07-16] MEDS: POLYMYXIN/TRIMETHOPRIM OPHT SOLN 10 ML BTL RIGHT EYE SCH ×4 (07:15→07:30)
[2017-07-16] MEDS: CYCLOPENTOLATE HCL 1% OPHT SOLN 2 ML BTL RIGHT EYE SCH ×4 (07:15→07:30)
[2017-07-16] MEDS: PHENYLEPHRINE HCL 10% OPTH SOLN 5 ML BTL RIGHT EYE SCH ×4 (07:15→07:30)
[2017-07-16] MEDS: TROPICAMIDE 1% OPHT SOLN 15 ML BTL RIGHT EYE SCH ×4 (07:15→07:30)
[2017-07-16 09:03] VITALS: TEMP 98.6
[2017-07-16 09:23] VITALS: BP 113/81; PULSE 83; RESP 14; O2SAT 96
--- NOTE | 2017-07-16 12:39 | MP ---
cc: SATISH FREEDMAN M.D. [facility] #: [id number] DATE: July 16, 2017 PREOPERATIVE DIAGNOSIS: Visually significant cataract right eye. POSTOPERATIVE DIAGNOSIS: Visually significant cataract right eye. OPERATION: Phacoemulsification with posterior chamber lens implantation, right eye. SURGEON: Satish Freedman MD ANESTHESIA: Topical with MAC. COMPLICATIONS: None. PROCEDURE: After informed consent was obtained, the patient was brought into the operative suite and placed on appropriate monitors by the Anesthesia Service. The patient had been given dilating drops and topical lidocaine gel in the holding area. The patient's operative eye was then prepped and draped in the usual sterile fashion. A wire lid speculum was placed. Further 2% lidocaine was then dropped on the cornea prior to beginning the procedure. A paracentesis incision was made in the peripheral cornea with a 1 mm josiah keratome. The anterior chamber was filled with viscoelastic. The anterior chamber was then entered through a stepped, clear corneal incision using a sharp 3 mm josiah keratome. A circular tear capsulorrhexis was then made with a bent needle cystitome. Following hydrodissection of the lens nucleus with balance saline, phacoemulsification of the nucleus was performed using a modified chopping technique. The remaining cortex was removed with irrigation/aspiration. The prior two procedures were both performed using the handpieces of the [employer] phaco unit. The capsular bag was then filled with viscoelastic. The intraocular lens was then injected into the capsular bag and positioned. The type of intraocular lens and its power can be found elsewhere in this chart. The remaining viscoelastic was then removed from the anterior chamber with the IA handpiece. The anterior chamber was reformed with balanced saline. The wound was then closed securely with stromal hydration. It was found to be watertight to an intraocular pressure of at least 30 mmHg by palpation. A small amount of balanced salt solution was then removed through the paracentesis site and the intraocular pressure at the end of the case was approximately 20 by palpation. All drapes were then removed. TobraDex ointment was then placed in the eye, which was closed beneath a semi-pressure patch dressing. The patient tolerated this procedure well and left the operating room awake and alert. The patient is to follow-up in my office in the morning. ADDENDUM: After the clear corneal incisions were sealed water-tight, a 6-mm limbal relaxing incision was made with a 600 micron josiah blade, centered around the 100-degree meridian. MD LASHANDA Lee/HIMANSHU /10:00 AM /12:34 PM
== END | disposition home or self-care (01) ==
LOC: PHSDC 06:33
PROVIDERS: ATTEND Optometrist Occupational Vision
DX: H25.811 Combined forms of age-related cataract, right eye (principal); H40.053 Ocular hypertension, bilateral; E11.9 Type 2 diabetes mellitus without complications; I10 Essential (primary) hypertension; E78.5 Hyperlipidemia, unspecified; E55.9 Vitamin D deficiency, unspecified; G57.93 Unspecified mononeuropathy of bilateral lower limbs; K21.9 Gastro-esophageal reflux disease without esophagitis; F32.9 Major depressive disorder, single episode, unspecified; G40.909 Epilepsy, unspecified, not intractable, without status epilepticus; E66.9 Obesity, unspecified; Z68.34 Body mass index [BMI] 34.0-34.9, adult; Z79.899 Other long term (current) drug therapy
CPT/HCPCS: J2250; J7040; V2632

== ENCOUNTER → 2017-08-27 | Day surgery (SDC) | payer OTHER ==
[~2017-08-27] VITALS: Ht 165.1 cm; Wt 95.5 kg
[~2017-08-27] MED LIST changes: +ACET300T2 PO; -ACETAMINOPHEN 325 MG TAB PO PRN; +CYCL10TA PO; -CYCL1TAB29 PO; -ESTR1TAB PO; -FLURBIPROFEN 0.03% OPHT SOLN 2.5 ML BTL RIGHT EYE SCH; -INSULIN HUMAN REGULAR 1,000 UNITS/10 ML VIAL SQ PRN; -LORA-373 PO; +LORA0.5T PO; +METF1000 PO; +PROPARACAINE HCL 0.5% OPHT SOLN 15 ML BTL LEFT EYE ONE; -PROPARACAINE HCL 0.5% OPHT SOLN 15 ML BTL RIGHT EYE ONE; +VITA1000 PO
[2017-08-27] MEDS: TROPICAMIDE 1% OPHT SOLN 15 ML BTL LEFT EYE SCH ×4 (07:20→07:35)
[2017-08-27] MEDS: CYCLOPENTOLATE HCL 1% OPHT SOLN 2 ML BTL LEFT EYE SCH ×4 (07:20→07:35)
[2017-08-27] MEDS: PHENYLEPHRINE HCL 10% OPTH SOLN 5 ML BTL LEFT EYE SCH ×4 (07:20→07:35)
[2017-08-27 09:00] VITALS: TEMP 98.2
[2017-08-27 09:15] VITALS: BP 106/71; PULSE 90; RESP 14; O2SAT 96
--- NOTE | 2017-08-27 10:14 | MP ---
cc: SATISH FREEDMAN M.D. [facility] #: [id number] DATE: 08/27/2017 PREOPERATIVE DIAGNOSIS: Visually significant cataract left eye. POSTOPERATIVE DIAGNOSIS: Visually significant cataract left eye. OPERATION: Phacoemulsification with posterior chamber lens implantation, left eye. SURGEON: Satish Freedman MD ANESTHESIA: Topical with MAC. COMPLICATIONS: None. PROCEDURE: After informed consent was obtained, the patient was brought into the operative suite and placed on appropriate monitors by the Anesthesia Service. The patient had been given dilating drops and topical lidocaine gel in the holding area. The patient's operative eye was then prepped and draped in the usual sterile fashion. A wire lid speculum was placed. Further 2% lidocaine was then dropped on the cornea prior to beginning the procedure. A paracentesis incision was made in the peripheral cornea with a 1 mm josiah keratome. The anterior chamber was filled with viscoelastic. The anterior chamber was then entered through a stepped, clear corneal incision using a sharp 3 mm josiah keratome. A circular tear capsulorrhexis was then made with a bent needle cystitome. Following hydrodissection of the lens nucleus with balance saline, phacoemulsification of the nucleus was performed using a modified chopping technique. The remaining cortex was removed with irrigation/aspiration. The prior two procedures were both performed using the handpieces of the [employer] phaco unit. The capsular bag was then filled with viscoelastic. The intraocular lens was then injected into the capsular bag and positioned. The type of intraocular lens and its power can be found elsewhere in this chart. The remaining viscoelastic was then removed from the anterior chamber with the IA handpiece. The anterior chamber was reformed with balanced saline. The wound was then closed securely with stromal hydration. It was found to be watertight to an intraocular pressure of at least 30 mmHg by palpation. A small amount of balanced salt solution was then removed through the paracentesis site and the intraocular pressure at the end of the case was approximately 20 by palpation. All drapes were then removed. TobraDex ointment was then placed in the eye, which was closed beneath a semi-pressure patch dressing. The patient tolerated this procedure well and left the operating room awake and alert. The patient is to follow-up in my office in the morning. ADDENDUM: After the clear corneal incisions were sealed watertight, a 4-mm limbal-relaxing incision was made with a 600 micron josiah blade centered around the 60-degree meridian. MD LASHANDA Lee/HIMANSHU /10:06 AM /10:09 AM
== END | disposition home or self-care (01) ==
LOC: PHSDC 06:47
PROVIDERS: ATTEND Optometrist Occupational Vision
DX: H25.812 Combined forms of age-related cataract, left eye (principal)
CPT/HCPCS: 00142; 66984; J2250; J7040; V2632